=== PATIENT | female | born 1980 | race Two or more races ===

== ENCOUNTER 2017-12-31 18:40 | Emergency (ER) | payer SELFPAY ==
[~2017-12-31] VITALS: Ht 162.6 cm; Wt 64.0 kg
[2017-12-31] MEDS ORDERED: LORAZEPAM 0.5MG TABLET PO ONE (20:30)
[2017-12-31] MEDS ORDERED: IBUPROFEN 600MG TABLET PO ONE (20:30)
[2017-12-31 21:41] VITALS: BP 125/75
== END 2017-12-31 21:42 | disposition home or self-care (01) ==
LOC: ER 18:40
DX: R07.89 Other chest pain (principal); V49.88XA Car occupant (driver) (passenger) injured in other specified transport accidents, initial encounter; Y93.89 Activity, other specified; Y92.89 Other specified places as the place of occurrence of the external cause; Y99.8 Other external cause status
CPT/HCPCS: 71045; 81025; 99283